=== PATIENT | female | born 1955 | race Caucasian/White ===

== ENCOUNTER 2019-10-16 04:42 | Observation (INO) ==
[2019-10-16] MEDS ORDERED: VANCOMYCIN INJ 1,000 MG in SODIUM CHLORIDE 0.9% 250 ML IV ONE (06:00)
[2019-10-16] MEDS ORDERED: VANCOMYCIN 1,000 MG VIAL ONE (06:26)
[2019-10-16] MEDS ORDERED: ceFAZolin 1,000 MG VIAL ONE (06:26)
[2019-10-16] MEDS ORDERED: ceFAZolin 1,000 MG in SYRINGE 1 EACH IV ONE (07:00)
[2019-10-16] MEDS ORDERED: RANITIDINE 150 MG TABLET PO ONE (07:02)
[2019-10-16] MEDS ORDERED: ALBUTEROL/IPRATROPIUM 3 ML NEB RESP TX ONE (07:14)
[2019-10-16] MEDS ORDERED: RANITIDINE 150 MG TABLET ONE (07:21)
[2019-10-16] MEDS ORDERED: LACTATED RINGERS 1,000 ML IV SCH (07:30)
[2019-10-16] MEDS ORDERED: DEXAMETHASONE 4 MG/1 ML VIAL ONE (07:42)
[2019-10-16] MEDS ORDERED: ROPIVACAINE 0.5% 30 ML VIAL ONE (07:42)
[2019-10-16] MEDS ORDERED: EPINEPHrine 1 MG/ML VIAL ONE (07:42)
[2019-10-16] MEDS ORDERED: DEXMEDETOMIDINE 200 MCG/2 ML VIAL ONE (07:45)
[2019-10-16] MEDS ORDERED: BACITRACIN OINT 0.9 GM PACK TOP ONE (08:07)
[2019-10-16] MEDS ORDERED: TRANEXAMIC ACID 1,000 MG/10 ML VIAL ONE (08:40)
[2019-10-16] MEDS ORDERED: PHENYLEPHRINE 1 MG/10 ML SYRINGE IV ONE ×2 (09:00→09:50)
[2019-10-16] MEDS ORDERED: PHENYLEPHRINE DRIP 20 MG/250 ML PREMIX IV ONE (09:00)
[2019-10-16] MEDS ORDERED: hydrOXYzine HCL 10 MG TABLET PO PRN (09:42)
[2019-10-16] MEDS ORDERED: ONDANSETRON 4 MG/2 ML VIAL IV PRN (09:45)
[2019-10-16] MEDS ORDERED: MORPHINE 4 MG/1 ML VIAL IV PRN (09:45)
[2019-10-16] MEDS ORDERED: diphenhydrAMINE CAP 25 MG CAPSULE PO PRN (09:45)
[2019-10-16] MEDS ORDERED: oxyCODONE/ACETAMINOPHEN 5-325 MG TABLET PO PRN (09:45)
[2019-10-16] MEDS ORDERED: BUPIVACAINE SPINAL 0.75% 2 ML AMP SPINAL ONE (09:49)
[2019-10-16] MEDS ORDERED: MIDAZOLAM 2 MG/2 ML VIAL ONE (09:49)
[2019-10-16] MEDS ORDERED: fentaNYL 100 MCG/2 ML VIAL ONE (09:50)
[2019-10-16] MEDS ORDERED: ePHEDrine 50 MG/ML AMP ONE (09:50)
[2019-10-16] MEDS: LACTATED RINGERS 1,000 ML IV SCH ×2 (09:57→20:53)
[2019-10-16] MEDS ORDERED: INFLUENZA VIRUS VACCINE 0.5 ML SYRINGE IM ONE (11:02)
[2019-10-16] MEDS: MORPHINE 4 MG/1 ML VIAL IV PRN ×3 (11:19→18:08)
[2019-10-16] MEDS ORDERED: NICOTINE 21 MG/24 HR PATCH TRANSDERM PRN (11:56)
[2019-10-16] MEDS: ceFAZolin 1,000 MG in SYRINGE 1 EACH IV SCH ×2 (15:06→21:47)
[2019-10-16] MEDS: GABAPENTIN 300 MG CAPSULE PO SCH ×2 (15:06→20:49)
[2019-10-16] MEDS: AMITRIPTYLINE 50 MG TABLET PO SCH (20:49)
[2019-10-16] MEDS: DOCUSATE SODIUM 100 MG CAPSULE PO SCH (20:49)
[2019-10-16] MEDS: ROSUVASTATIN 20 MG TABLET PO SCH (20:49)
[2019-10-16] MEDS: FLUTICASONE 50 MCG NASAL SPRAY 16 GM BOTTLE BOTH NARES SCH (20:54)
[2019-10-16] MEDS ORDERED: traZODone 50 MG TABLET PO SCH (21:00)
[2019-10-16] MEDS: traZODone 50 MG TABLET PO SCH (21:47)
[2019-10-17] MEDS: LACTATED RINGERS 1,000 ML IV SCH (05:04)
[2019-10-17 05:32] LABS: Basophils % 0.1 % (0.0-0.8); Hematocrit 42.1 VOL% (35.7-47.0); Immature Granulocytes % 0.5 %; Immature Granulocytes Absolute 0.08 #; Lymphocytes # 1.2 10*3/uL (1.4-4.0); Lymphocytes % 6.7 % (21.3-54.2); Mean Corpuscular HGB Conc 33.3 GM/DL (32-36); Mean Corpuscular Volume 92.3 FL (87-102); Mean Platelet Volume 9.7 FL (9.6-12.0); Monocytes % 6.5 % (1.7-12.7); Neutrophils % 86.2 % (38.7-73.9); Platelet Count 299 T/CUMM (130-400); Red Blood Count 4.56 MC/CUMM (3.8-5.5); Red Cell Distribution Width 13.2 % (9.3-17.3); White Blood Count 17.2 T/CUMM (4-12)
[2019-10-17 06:01] LABS: Calcium 9.3 MG/DL (8.5-10.1); Osmolality,Calculated 274.8 MOS/KG (273-304)
[2019-10-17] MEDS: LOSARTAN 25 MG TABLET PO SCH (08:49)
[2019-10-17] MEDS: PANTOPRAZOLE 40 MG TABLET PO SCH (08:49)
[2019-10-17] MEDS: DOCUSATE SODIUM 100 MG CAPSULE PO SCH ×2 (08:49→21:02)
[2019-10-17] MEDS: MULTIVITAMIN (CENTRUM) TABLET PO SCH (08:49)
[2019-10-17] MEDS: oxyCODONE/ACETAMINOPHEN 5-325 MG TABLET PO PRN ×2 (08:49→12:23)
[2019-10-17] MEDS: GABAPENTIN 300 MG CAPSULE PO SCH ×3 (08:49→21:02)
[2019-10-17] MEDS: CHOLECALCIFEROL 5,000 UNIT TABLET PO SCH (08:49)
[2019-10-17] MEDS: MAGNESIUM HYDROXIDE SUSP 30 ML UDCUP PO PRN (08:50)
[2019-10-17] MEDS ORDERED: MULTIVITAMIN PO SCH (09:00)
[2019-10-17] MEDS: FLUTICASONE 50 MCG NASAL SPRAY 16 GM BOTTLE BOTH NARES SCH ×2 (10:24→21:03)
[2019-10-17] MEDS ORDERED: METOPROLOL TARTRATE 25 MG TABLET PO ONE (12:13)
[2019-10-17] MEDS: AMITRIPTYLINE 50 MG TABLET PO SCH (21:02)
[2019-10-17] MEDS: traZODone 50 MG TABLET PO SCH (21:02)
[2019-10-17] MEDS: ROSUVASTATIN 20 MG TABLET PO SCH (21:03)
[2019-10-18 05:51] LABS: Basophils % 0.3 % (0.0-0.8); Eosinophils # 0.3 10*3/uL (0.0-0.87); Hematocrit 39.1 VOL% (35.7-47.0); Hemoglobin 13.1 GM/DL (12.0-16.0); Immature Granulocytes % 0.5 %; Immature Granulocytes Absolute 0.06 #; Lymphocytes # 1.7 10*3/uL (1.4-4.0); Lymphocytes % 12.7 % (21.3-54.2); Mean Corpuscular HGB Conc 33.5 GM/DL (32-36); Mean Corpuscular Volume 92.2 FL (87-102); Mean Platelet Volume 9.8 FL (9.6-12.0); Neutrophils % 77.5 % (38.7-73.9); Platelet Count 214 T/CUMM (130-400); Red Blood Count 4.24 MC/CUMM (3.8-5.5); Red Cell Distribution Width 13.1 % (9.3-17.3); White Blood Count 13.2 T/CUMM (4-12)
[2019-10-18 06:04] LABS: Calcium 8.5 MG/DL (8.5-10.1); Osmolality,Calculated 263.5 MOS/KG (273-304)
[2019-10-18] MEDS: DULoxetine 30 MG CAPSULE PO SCH ×2 (08:03→10:11)
[2019-10-18] MEDS: MULTIVITAMIN (CENTRUM) TABLET PO SCH (08:54)
[2019-10-18] MEDS: DOCUSATE SODIUM 100 MG CAPSULE PO SCH (08:54)
[2019-10-18] MEDS: LOSARTAN 25 MG TABLET PO SCH (08:55)
[2019-10-18] MEDS: FLUTICASONE 50 MCG NASAL SPRAY 16 GM BOTTLE BOTH NARES SCH (08:55)
[2019-10-18] MEDS: PANTOPRAZOLE 40 MG TABLET PO SCH (08:56)
[2019-10-18] MEDS: GABAPENTIN 300 MG CAPSULE PO SCH (08:56)
[2019-10-18] MEDS: CHOLECALCIFEROL 5,000 UNIT TABLET PO SCH (08:57)
[2019-10-18] MEDS: MAGNESIUM HYDROXIDE SUSP 30 ML UDCUP PO PRN (08:57)
[2019-10-18 11:40] VITALS: BP 110/72
== END 2019-10-18 14:22 | disposition home health service (06) ==
LOC: N.OR 04:42 → N.SDSINP 04:43 → INTOOBSV 09:45 → N.SDSINP 09:45 → N.3E 10:47
PROVIDERS: ADMIT Orthopaedic Surgery; ATTEND Orthopaedic Surgery

== ENCOUNTER 2020-06-27 10:02 | Observation (INO) ==
[~2020-06-27 10:02] MED LIST: ASPIRIN 325 MG TABLET PO ONE; DIAZEPAM 5 MG TABLET PO ONE; MAGNESIUM SULF RIDER 2 GM in PREMIX 1 EACH IV PRN; POTASSIUM CHLORIDE RIDER 10 MEQ in PREMIX 1 EACH IV PRN; diphenhydrAMINE CAP 25 MG CAPSULE PO ONE
[2020-06-27] MEDS ORDERED: DIAZEPAM 5 MG TABLET ONE (12:18)
[2020-06-27] MEDS ORDERED: diphenhydrAMINE CAP 25 MG CAPSULE ONE (12:18)
[2020-06-27] MEDS ORDERED: ASPIRIN 325 MG TABLET ONE (12:18)
[2020-06-27] MEDS ORDERED: ASPIRIN 325 MG TABLET PO ONE (12:34)
[2020-06-27] MEDS ORDERED: diphenhydrAMINE CAP 25 MG CAPSULE PO ONE (12:35)
[2020-06-27] MEDS ORDERED: DIAZEPAM 5 MG TABLET PO ONE (12:35)
[2020-06-27] MEDS ORDERED: HEPARIN/NACL 0.9% 2 UNITS/ML 1,500 ML IV ONE (13:29)
[2020-06-27] MEDS ORDERED: LIDOCAINE 1% 20 ML VIAL ONE (13:29)
[2020-06-27] MEDS ORDERED: fentaNYL 100 MCG/2 ML VIAL ONE (13:45)
[2020-06-27] MEDS ORDERED: MIDAZOLAM 2 MG/2 ML VIAL ONE (13:45)
[2020-06-27] MEDS ORDERED: HEPARIN 5,000 UNIT/1 ML VIAL ONE (14:22)
[2020-06-27] MEDS ORDERED: NITROGLYCERIN DRIP 50 MG/250 ML BOTTLE IV ONE (15:06)
[2020-06-27] MEDS ORDERED: SODIUM CHLORIDE 0.9% 1,000 ML IV SCH (16:00)
[2020-06-27] MEDS ORDERED: MORPHINE 4 MG/1 ML VIAL IV ONE (17:00)
[2020-06-27] MEDS ORDERED: INFLUENZA VIRUS VACCINE 0.5 ML SYRINGE IM ONE (17:14)
[2020-06-27] MEDS: SODIUM CHLORIDE 0.9% 1,000 ML IV SCH ×2 (17:34→17:46)
[2020-06-27] MEDS: MORPHINE 4 MG/1 ML VIAL IV PRN (23:42)
[2020-06-28] MEDS: MORPHINE 4 MG/1 ML VIAL IV PRN ×4 (03:44→18:36)
[2020-06-28] MEDS: SODIUM CHLORIDE 0.9% 1,000 ML IV SCH ×2 (04:14→13:17)
[2020-06-28] MEDS ORDERED: traMADol 50 MG TABLET PO PRN (06:04)
[2020-06-28] MEDS ORDERED: tiZANidine 4 MG TABLET PO PRN (06:24)
[2020-06-28 06:39] LABS: Basophils % 0.4 % (0.0-0.8); Eosinophils # 0.3 10*3/uL (0.0-0.87); Eosinophils % 2.4 % (0.00-10.9); Hematocrit 35.6 VOL% (35.7-47.0); Immature Granulocytes % 0.3 %; Immature Granulocytes Absolute 0.03 #; Lymphocytes # 1.8 10*3/uL (1.4-4.0); Mean Corpuscular HGB Conc 33.7 GM/DL (32-36); Mean Corpuscular Volume 92.7 FL (87-102); Mean Platelet Volume 9.5 FL (9.6-12.0); Monocytes % 6.7 % (1.7-12.7); Neutrophils % 73.2 % (38.7-73.9); Platelet Count 227 T/CUMM (130-400); Red Blood Count 3.84 MC/CUMM (3.8-5.5); Red Cell Distribution Width 12.5 % (9.3-17.3); White Blood Count 10.5 T/CUMM (4-12)
[2020-06-28 06:59] LABS: Calcium 8.3 MG/DL (8.5-10.1); Osmolality,Calculated 278.4 MOS/KG (273-304)
[2020-06-28] MEDS: carvediloL 3.125 MG TABLET PO SCH ×2 (08:59→16:43)
[2020-06-28] MEDS ORDERED: RIVAROXABAN 2.5 MG TABLET PO SCH (09:00)
[2020-06-28] MEDS: MULTIVITAMIN (CENTRUM) TABLET PO SCH (09:05)
[2020-06-28] MEDS: LOSARTAN 50 MG TABLET PO SCH (09:05)
[2020-06-28] MEDS: DULoxetine 30 MG CAPSULE PO SCH ×2 (09:05→21:28)
[2020-06-28] MEDS: OMEGA 3 ACID ETHYL ESTERS 1 GM CAPSULE PO SCH ×2 (09:05→21:29)
[2020-06-28] MEDS: hydrOXYzine HCL 10 MG TABLET PO SCH ×2 (09:05→21:27)
[2020-06-28] MEDS: gemfibroziL 600 MG TABLET PO SCH ×2 (09:05→21:28)
[2020-06-28] MEDS: ASPIRIN EC 81 MG TABLET PO SCH (09:06)
[2020-06-28] MEDS: CHOLECALCIFEROL 5,000 UNIT TABLET PO SCH (09:06)
[2020-06-28] MEDS: PANTOPRAZOLE 40 MG TABLET PO SCH (09:06)
[2020-06-28] MEDS: GABAPENTIN 300 MG CAPSULE PO SCH ×3 (09:06→21:29)
[2020-06-28] MEDS: POLYMYXIN/TRIMETHOPRIM OPH SOL 10 ML BOTTLE BOTH EYES SCH ×5 (09:07→21:29)
[2020-06-28] MEDS: FLUTICASONE 50 MCG NASAL SPRAY 16 GM BOTTLE BOTH NARES SCH ×2 (09:07→21:30)
[2020-06-28] MEDS: traZODone 50 MG TABLET PO SCH ×2 (09:13→21:29)
[2020-06-28] MEDS ORDERED: THROMBIN TOPICAL (RECOMBINANT) 5,000 UNIT VIAL TOP ONE (10:01)
[2020-06-28 12:27] LABS: Basophils % 0.3 % (0.0-0.8); Eosinophils # 0.2 10*3/uL (0.0-0.87); Eosinophils % 1.5 % (0.00-10.9); Hematocrit 36.5 VOL% (35.7-47.0); Hemoglobin 12.4 GM/DL (12.0-16.0); Immature Granulocytes % 0.3 %; Immature Granulocytes Absolute 0.03 #; Lymphocytes # 1.6 10*3/uL (1.4-4.0); Lymphocytes % 15.1 % (21.3-54.2); Mean Corpuscular Volume 91.7 FL (87-102); Mean Platelet Volume 9.7 FL (9.6-12.0); Monocytes % 6.6 % (1.7-12.7); Neutrophils % 76.2 % (38.7-73.9); Platelet Count 224 T/CUMM (130-400); Red Blood Count 3.98 MC/CUMM (3.8-5.5); Red Cell Distribution Width 12.5 % (9.3-17.3); White Blood Count 10.3 T/CUMM (4-12)
[2020-06-28] MEDS: ROSUVASTATIN 20 MG TABLET PO SCH (21:28)
[2020-06-28] MEDS: AMITRIPTYLINE 50 MG TABLET PO SCH (21:30)
[2020-06-29] MEDS: POLYMYXIN/TRIMETHOPRIM OPH SOL 10 ML BOTTLE BOTH EYES SCH ×8 (00:24→22:23)
[2020-06-29 04:11] LABS: Basophils % 0.3 % (0.0-0.8); Eosinophils # 0.2 10*3/uL (0.0-0.87); Eosinophils % 1.5 % (0.00-10.9); Hematocrit 34.4 VOL% (35.7-47.0); Hemoglobin 12.1 GM/DL (12.0-16.0); Immature Granulocytes % 0.3 %; Immature Granulocytes Absolute 0.04 #; Lymphocytes # 2.1 10*3/uL (1.4-4.0); Lymphocytes % 18.1 % (21.3-54.2); Mean Corpuscular HGB Conc 35.2 GM/DL (32-36); Mean Corpuscular Volume 90.1 FL (87-102); Mean Platelet Volume 9.7 FL (9.6-12.0); Monocytes % 8.9 % (1.7-12.7); Neutrophils % 70.9 % (38.7-73.9); Platelet Count 206 T/CUMM (130-400); Red Blood Count 3.82 MC/CUMM (3.8-5.5); Red Cell Distribution Width 12.3 % (9.3-17.3); White Blood Count 11.7 T/CUMM (4-12)
[2020-06-29 04:37] LABS: Calcium 8.6 MG/DL (8.5-10.1); Osmolality,Calculated 275.7 MOS/KG (273-304)
[2020-06-29] MEDS: carvediloL 3.125 MG TABLET PO SCH ×2 (08:44→16:26)
[2020-06-29] MEDS: ASPIRIN EC 81 MG TABLET PO SCH (08:46)
[2020-06-29] MEDS: gemfibroziL 600 MG TABLET PO SCH ×2 (08:46→22:19)
[2020-06-29] MEDS: traZODone 50 MG TABLET PO SCH ×2 (08:46→22:21)
[2020-06-29] MEDS: OMEGA 3 ACID ETHYL ESTERS 1 GM CAPSULE PO SCH ×2 (08:47→22:33)
[2020-06-29] MEDS: DULoxetine 30 MG CAPSULE PO SCH ×2 (08:47→22:19)
[2020-06-29] MEDS: CHOLECALCIFEROL 5,000 UNIT TABLET PO SCH (08:47)
[2020-06-29] MEDS: MULTIVITAMIN (CENTRUM) TABLET PO SCH (08:47)
[2020-06-29] MEDS: PANTOPRAZOLE 40 MG TABLET PO SCH (08:49)
[2020-06-29] MEDS: LOSARTAN 50 MG TABLET PO SCH (08:49)
[2020-06-29] MEDS: GABAPENTIN 300 MG CAPSULE PO SCH ×3 (08:49→22:19)
[2020-06-29] MEDS: hydrOXYzine HCL 10 MG TABLET PO SCH ×2 (08:49→22:23)
[2020-06-29] MEDS: FLUTICASONE 50 MCG NASAL SPRAY 16 GM BOTTLE BOTH NARES SCH ×2 (08:50→22:18)
[2020-06-29] MEDS ORDERED: SODIUM CHLORIDE 0.9% 1,000 ML IV ONE (11:54)
[2020-06-29] MEDS ORDERED: SODIUM CHLORIDE 0.9% 500 ML IV ONE (14:13)
[2020-06-29 15:01] LABS: Basophils % 0.1 % (0.0-0.8); Eosinophils # 0.1 10*3/uL (0.0-0.87); Eosinophils % 1.5 % (0.00-10.9); Hematocrit 29.5 VOL% (35.7-47.0); Immature Granulocytes % 0.3 %; Immature Granulocytes Absolute 0.03 #; Lymphocytes # 1.7 10*3/uL (1.4-4.0); Mean Corpuscular HGB Conc 33.9 GM/DL (32-36); Mean Corpuscular Volume 93.9 FL (87-102); Mean Platelet Volume 9.7 FL (9.6-12.0); Monocytes % 9.6 % (1.7-12.7); Neutrophils % 70.5 % (38.7-73.9); Platelet Count 188 T/CUMM (130-400); Red Cell Distribution Width 12.6 % (9.3-17.3); White Blood Count 9.2 T/CUMM (4-12)
[2020-06-29 15:06] LABS: Red Blood Count 3.14 MC/CUMM (3.8-5.5)
[2020-06-29] MEDS: ROSUVASTATIN 20 MG TABLET PO SCH (22:19)
[2020-06-29] MEDS: AMITRIPTYLINE 50 MG TABLET PO SCH (22:33)
[2020-06-30] MEDS: POLYMYXIN/TRIMETHOPRIM OPH SOL 10 ML BOTTLE BOTH EYES SCH ×8 (00:56→21:03)
[2020-06-30 06:38] LABS: Basophils % 0.2 % (0.0-0.8); Eosinophils # 0.3 10*3/uL (0.0-0.87); Eosinophils % 3.4 % (0.00-10.9); Hematocrit 31.7 VOL% (35.7-47.0); Hemoglobin 10.5 GM/DL (12.0-16.0); Immature Granulocytes % 0.2 %; Immature Granulocytes Absolute 0.02 #; Lymphocytes # 1.9 10*3/uL (1.4-4.0); Lymphocytes % 20.9 % (21.3-54.2); Mean Corpuscular HGB Conc 33.1 GM/DL (32-36); Mean Platelet Volume 10.1 FL (9.6-12.0); Monocytes % 9.2 % (1.7-12.7); Neutrophils % 66.1 % (38.7-73.9); Platelet Count 192 T/CUMM (130-400); Red Blood Count 3.41 MC/CUMM (3.8-5.5); Red Cell Distribution Width 12.7 % (9.3-17.3); White Blood Count 8.8 T/CUMM (4-12)
[2020-06-30 06:44] LABS: Calcium 8.6 MG/DL (8.5-10.1); Osmolality,Calculated 277.4 MOS/KG (273-304)
[2020-06-30] MEDS: DULoxetine 30 MG CAPSULE PO SCH ×2 (09:06→20:59)
[2020-06-30] MEDS: gemfibroziL 600 MG TABLET PO SCH ×2 (09:06→20:59)
[2020-06-30] MEDS: PANTOPRAZOLE 40 MG TABLET PO SCH (09:06)
[2020-06-30] MEDS: CHOLECALCIFEROL 5,000 UNIT TABLET PO SCH (09:06)
[2020-06-30] MEDS: ASPIRIN EC 81 MG TABLET PO SCH (09:06)
[2020-06-30] MEDS: hydrOXYzine HCL 10 MG TABLET PO SCH ×2 (09:06→20:59)
[2020-06-30] MEDS: carvediloL 3.125 MG TABLET PO SCH ×2 (09:06→17:35)
[2020-06-30] MEDS: GABAPENTIN 300 MG CAPSULE PO SCH ×3 (09:06→21:00)
[2020-06-30] MEDS: OMEGA 3 ACID ETHYL ESTERS 1 GM CAPSULE PO SCH ×2 (09:06→21:03)
[2020-06-30] MEDS: traZODone 50 MG TABLET PO SCH ×2 (09:06→21:00)
[2020-06-30] MEDS: MULTIVITAMIN (CENTRUM) TABLET PO SCH (09:06)
[2020-06-30] MEDS: LOSARTAN 50 MG TABLET PO SCH (09:06)
[2020-06-30] MEDS: FLUTICASONE 50 MCG NASAL SPRAY 16 GM BOTTLE BOTH NARES SCH ×2 (09:11→21:03)
[2020-06-30] MEDS: AMITRIPTYLINE 50 MG TABLET PO SCH (20:59)
[2020-06-30] MEDS: ROSUVASTATIN 20 MG TABLET PO SCH (21:00)
[2020-07-01] MEDS: POLYMYXIN/TRIMETHOPRIM OPH SOL 10 ML BOTTLE BOTH EYES SCH ×5 (00:01→11:39)
[2020-07-01 06:19] LABS: Basophils % 0.4 % (0.0-0.8); Eosinophils # 0.3 10*3/uL (0.0-0.87); Hematocrit 31.2 VOL% (35.7-47.0); Hemoglobin 10.3 GM/DL (12.0-16.0); Immature Granulocytes % 0.4 %; Immature Granulocytes Absolute 0.03 #; Lymphocytes # 1.7 10*3/uL (1.4-4.0); Mean Corpuscular Volume 92.6 FL (87-102); Mean Platelet Volume 9.8 FL (9.6-12.0); Monocytes % 8.7 % (1.7-12.7); Neutrophils % 66.5 % (38.7-73.9); Platelet Count 230 T/CUMM (130-400); Red Blood Count 3.37 MC/CUMM (3.8-5.5); Red Cell Distribution Width 12.6 % (9.3-17.3); White Blood Count 8.5 T/CUMM (4-12)
[2020-07-01 06:48] LABS: Calcium 8.9 MG/DL (8.5-10.1); Osmolality,Calculated 280.3 MOS/KG (273-304)
[2020-07-01] MEDS: DULoxetine 30 MG CAPSULE PO SCH (08:14)
[2020-07-01] MEDS: PANTOPRAZOLE 40 MG TABLET PO SCH (08:14)
[2020-07-01] MEDS: carvediloL 3.125 MG TABLET PO SCH (08:14)
[2020-07-01] MEDS: LOSARTAN 50 MG TABLET PO SCH (08:14)
[2020-07-01] MEDS: gemfibroziL 600 MG TABLET PO SCH (08:14)
[2020-07-01] MEDS: hydrOXYzine HCL 10 MG TABLET PO SCH (08:14)
[2020-07-01] MEDS: OMEGA 3 ACID ETHYL ESTERS 1 GM CAPSULE PO SCH (08:14)
[2020-07-01] MEDS: MULTIVITAMIN (CENTRUM) TABLET PO SCH (08:14)
[2020-07-01] MEDS: GABAPENTIN 300 MG CAPSULE PO SCH (08:15)
[2020-07-01] MEDS: traZODone 50 MG TABLET PO SCH (08:15)
[2020-07-01] MEDS: CHOLECALCIFEROL 5,000 UNIT TABLET PO SCH (08:15)
[2020-07-01] MEDS: ASPIRIN EC 81 MG TABLET PO SCH (08:15)
[2020-07-01] MEDS: FLUTICASONE 50 MCG NASAL SPRAY 16 GM BOTTLE BOTH NARES SCH (08:20)
[2020-07-01 12:02] VITALS: BP 138/63
== END 2020-07-01 13:32 | disposition home or self-care (01) ==
LOC: N.5E 10:02 → N.CL 10:02 → N.5E 17:22
PROVIDERS: ADMIT Internal Medicine Cardiovascular Disease; ATTEND Internal Medicine Cardiovascular Disease